=== PATIENT | female | born 1995 | race Caucasian/White ===

== ENCOUNTER 2021-02-05 14:54 | Emergency (ER) | payer OTHER, SELFPAY ==
[2021-02-05 15:24] VITALS: BP 119/56; PULSE 89; RESP 20; TEMP 36.1; O2SAT 98; BMI 32.9
[2021-02-05 19:51] VITALS: BP 120/60; PULSE 88; RESP 20; TEMP 36.6; O2SAT 98
[2021-02-05 20:32] LABS: Appearance Urine CLEAR; Color Urine YELLOW; Glucose Urine UA NEG (NEG); Leukocyte Esterase Urine 3+ (NEG); Nitrite Urine NEG (NEG); Specific Gravity - Urine <= 1.005 (1.005-1.025); UACC Culture Trigger YES; Urine Blood NEG (NEG); Urine Ketones NEG (NEG); Urine Protein NEG (NEG-TRACE)
[2021-02-05 20:34] LABS: UPreg QC Valid YES; Urine Pregnancy POSITIVE (NEGATIVE)
[2021-02-05 20:39] LABS: Bacteria Urine 1+ /LPF; RBC Urine 0 /HPF (0); Squamous Epithelial Cell Urine 3+ /LPF
[2021-02-05 20:45] LABS: Amphetamine Screen Urine Not Detected (Not Detect); Barbiturates, Urine Not Detected (Not Detect); Benzodiazepines Screen Urine Not Detected (Not Detect); Cannabinoid Screen Urine Not Detected (Not Detect); Cocaine Screen Urine Not Detected (Not Detect); Fentanyl, urine Not Detected (Not Detect); Opiate Screen Urine Not Detected (Not Detect); Phencyclidine Screen Urine Not Detected (Not Detect)
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
== END 2021-02-05 21:29 | disposition home or self-care (01) ==
PROVIDERS: Physician Assistant; Emergency Provider Emergency Medicine
DX: O23.42 Unspecified infection of urinary tract in pregnancy, second trimester (principal); N39.0 Urinary tract infection, site not specified; O99.332 Smoking (tobacco) complicating pregnancy, second trimester; Z3A.26 26 weeks gestation of pregnancy
CPT/HCPCS: 80307; 81001; 81025; 87086; 99284

== ENCOUNTER 2021-09-28 16:46 | Emergency (ER) | payer OTHER, SELFPAY ==
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
[2021-09-28 17:56] VITALS: BP 110/75; PULSE 75; RESP 18; TEMP 36.6; O2SAT 97; BMI 36.6
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
[2021-09-28] MEDS: Lidocaine HCl 2 % MPF 5 ML VIAL SUBCUT (21:32)
== END 2021-09-28 22:59 | disposition home or self-care (01) ==
PROVIDERS: Emergency Provider Emergency Medicine; PCP Family Medicine
DX: S01.81XA Laceration without foreign body of other part of head, initial encounter (principal); X99.0XXA Assault by sharp glass, initial encounter; Y93.9 Activity, unspecified; Y92.9 Unspecified place or not applicable; Y99.9 Unspecified external cause status
CPT/HCPCS: 12011; 70450; 99282; 99284

== ENCOUNTER 2024-12-27 09:29 | Outpatient (REF) | payer OTHER, SELFPAY ==
[2024-12-27 12:59] LABS: MANUAL DIFF FLAG NO
[2024-12-27 13:10] LABS: Hematocrit 40.9 % (37.0-47.0); Hemoglobin 13.8 g/dl (12.0-16.0); Imm Gran Abs Auto 0.03 X10*3/uL (0.00-0.03); Imm Gran Pct Auto 0.3 % (0.0-0.4); Lymphocytes Absolute Auto 1.7 X10*3/uL (1.2-4.9); Mean Corpuscular HGB Conc 33.7 g/dl (31.0-35.0); Mean Corpuscular Hemoglobin 31.0 pg (27.0-33.0); Mean Corpuscular Volume 91.9 fL (80.0-98.0); NRBC Abs Auto 0.000 X10*3/uL (0.0-0.012); NRBC Pct Auto 0.0 /100WBC (0.0-0.2); Platelet Count 294 X10*3/uL (160-400); Red Blood Count 4.45 X10*6/uL (4.20-5.50); White Blood Count 9.0 X10*3/uL (4.8-10.8)
[2024-12-27 13:40] LABS: Appearance Urine Cloudy; Glucose Urine UA Negative (Negative); PH 7.0 (5.0-9.0); Specific Gravity - Urine 1.020 (1.005-1.025); UMIC TRIGGER UACC YES
[2024-12-27 13:47] LABS: UACC Culture Trigger YES
[2024-12-27 13:55] LABS: Alanine Aminotransferase 32 U/L (0-31); Albumin Level 4.3 g/dL (3.5-5.0); Alkaline Phosphatase 73 U/L (39-117); Anion Gap 12 (12-20); Aspartate Amino Transferase 29 U/L (5-31); Blood Urea Nitrogen 6 mg/dL (9-16); Calcium 8.5 mg/dL (8.4-10.2); Carbon Dioxide 23 mmol/L (22-29); Chloride 108 mmol/L (96-108); Cholesterol 148 mg/dL (<200); Estimated Glomerular Filt Rate > 60; HDL Cholesterol 61 mg/dL (>40); Magnesium 2.0 mg/dL (1.6-2.6); Potassium 3.8 mmol/L (3.3-5.1); Sodium 139 mmol/L (135-145); Total Protein 6.8 g/dL (6.5-8.0); Triglycerides 94 mg/dL (<150)
[2024-12-27 14:04] LABS: Folate 9.6 ng/mL (> or = 4.0); Vitamin B12 354 pg/mL (200-900)
[2024-12-28 07:39] LABS: HBS Num1 0.86 mIU/mL (0-7.99); HBsAGNum1 0.39 S/CO (0.00-0.99); HIV Num 1 0.07 S/CO (0.00-0.99); Hepatitis B Surface Antigen Negative (Negative); ~HepC Num1 0.10 S/CO (0.00-0.79); ~Hepatitis B Surface Antibody NONREACTIVE (Nonreactive); ~Hepatitis C Antibody Nonreactive (Nonreactive)
[2024-12-30 19:14] LABS: VITAMIN D (1,25 OH) D3 67 pg/mL; Vit D (1,25-Dihydroxy) Total 67 pg/mL (18-72); Vitamin D (1,25 OH) D2 <8 pg/mL
[2025-01-03 02:00] LABS: Calprotectin, Fecal 5 mcg/g
== END 2024-12-27 09:30 | disposition home or self-care (01) ==
LOC: HO.HKASLDS 09:29
PROVIDERS: PCP Nurse Practitioner Family; Visit Provider Student in an Organized Health Care Education/Training Program
DX: Z13.9 Encounter for screening, unspecified (principal); K52.9 Noninfective gastroenteritis and colitis, unspecified; R19.8 Other specified symptoms and signs involving the digestive system and abdomen; L73.2 Hidradenitis suppurativa; F41.9 Anxiety disorder, unspecified; F32.A Depression, unspecified; K62.89 Other specified diseases of anus and rectum; Z78.9 Other specified health status; F17.210 Nicotine dependence, cigarettes, uncomplicated; Z79.899 Other long term (current) drug therapy; Z83.79 Family history of other diseases of the digestive system
CPT/HCPCS: 36415; 80053; 80061; 81001; 82607; 82652; 82656; 82705; 82710; 82746; 83036; 83735; 83993; 84443; 85025; 86706; 86803; 87086; 87088; 87186; 87340; 87389

== ENCOUNTER 2024-12-27 09:29 | Outpatient (AMB) | payer OTHER, SELFPAY ==
--- NOTE | 2024-12-27 09:38 | MHC.PC.OV ---
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, bump in their bottom area Scourer Required: No Accompanied by: Self / Same As Patient Allergies No Known Allergies (No Known Allergies*) Allergy (Verified 12/27/24 09:38) Medication List - Last Reconciled 12/27/24 by Jerome Cordova MD aripiprazole 5 mg PO DAILY sertraline mg PO trazodone 50 mg PO BEDTIME Tobacco use date assessed: 12/27/24 Dental Screening Dental Screen Date: 12/27/24 Did you have a dental visit in the last 12 months?: Yes Did you have a dental problem in the last 6 months where you did not have access to dental care?: No Was dental information given to patient?: Patient has dentist HPI HPI Comments History of Present Illness Details History of Present Illness The patient is a 29-year-old female presenting for evaluation of chronic skin breakouts and gastrointestinal complaints. Hidradenitis Suppurativa: The patient has had recurrent skin breakouts since she was 22 years old, which have been diagnosed as hidradenitis suppurativa (HS). She experiences painful sores under her arms, on her back, on her buttocks, and between her eyes, which sometimes rupture spontaneously. The diagnosis was made at [facility] during a visit for multiple flare-ups, for which she was briefly given antibiotics. She feels the condition is getting worse and has resulted in scarring. Chronic Diarrhea and Anal Sensation: The patient reports chronic diarrhea ongoing for approximately three months to a year, characterized by yellow, watery stools, sometimes with chunks, and an absence of hard stools. She notes that eating salads with onions and tomatoes can trigger urgent diarrhea within 10-15 minutes. Associated symptoms include bubbly stomach noises and stools that can smell like tar. She also describes a sensation of feeling a ball on the front tip of her anus, which causes pressure when sitting. She has a history of acute colitis diagnosed at age 20. Anxiety and Depression: The patient is currently taking sertraline (Zoloft) and trazodone for anxiety and depression. She is followed by a psychiatric medication provider for management. Tobacco Use: The patient reports she has been smoking cigarettes since she was 19 years old. Surgical History: - Denies any history of surgeries. Medications: - Sertraline (Zoloft) for anxiety and depression. - Trazodone for anxiety and depression. - Depo-Provera injection every three months for contraception. Social History: - Substance Use: The patient smokes cigarettes and has been doing so since she was 19 years old. - Nutritional Intake: Reports her diet is not balanced, though she eats salads, vegetables like cucumbers and avocado, and red meat. - Contraception: Uses Depo-Provera injection every three months for control, which was started about a year ago. Family History: - Maternal grandfather had colon cancer and from it. - Mother has multiple sclerosis and was also diagnosed with hidradenitis suppurativa at age 40. - Father has hypercholesterolemia and denies diabetes or hypertension. - Sister has irritable bowel syndrome (IBS). Diagnostic Results: - The patient reports having tests for STDs, HIV, and kidney function at [facility] three months ago, all of which were negative; however, the records are not available for review. Past Medical History - Hidradenitis suppurativa, diagnosed at age [age]. - Acute colitis, diagnosed at age [age]. - Anxiety disorder. - Depression. Health Maintenance - Contraception: The patient receives a Depo-Provera injection every three months for contraception. - Screening Labs: Comprehensive labs will be ordered, including a CBC, CMP, thyroid panel, B12, folate, vitamin D, A1c, lipids, urine studies, and screens for hepatitis B and C. - Tobacco Use: The patient is a current smoker. [facility] Medical History (Updated 12/27/24 @ 11:32 by Jerome Cordova MD) Nicotine dependence Anxiety and depression Hidradenitis suppurativa GI symptoms Chronic diarrhea Family history of irritable bowel syndrome Family History (Updated 12/27/24 @ 09:40 by Aidan Mcdermott MA) Father No problems noted. Mother No problems noted. Social History Housing: Apartment Patient Tobacco Use Status: Current everyday Tobacco user Cigarettes Per Day: 6 service: No Current occupational status: employed Cognitive needs: No Hearing needs: No Vision needs: Yes (rx glasses) Questionnaire PHQ-9 Over the last 2 weeks, how often have you been bothered by any of the following problems? 1. Little interest or pleasure in doing things: several days 2. Feeling down, depressed, or hopeless: not at all 3. Trouble falling or staying asleep, or sleeping too much: not at all 4. Feeling tired or having little energy: several days 5. Poor appetite or overeating: several days 6. Feeling bad about yourself - or that you are a failure or have let yourself or your family down: not at all 7. Trouble concentrating on things, such as reading the newspaper or watching television: not at all 8. Moving or speaking so slowly that other people could have noticed. Or the opposite - being so fidgety or restless that you have been moving around a lot more than usual: not at all 9. Thoughts that you would be better off or of hurting yourself in some way: not at all Total score: 3 Source: Developed by Drs. Kodi Campbell, Stefany Stanley, Raj Lebron and colleagues, with an educational luis a from [employer]. Thrive Questionnaire Date Thrive assessed: 12/27/24 I am a: Patient What is your living situation today?: I have a steady place to live Within the past 12 months, did the food you bought not last and you didn't have the money to get more?: Never true Within the past 12 months, did you worry whether your food would run out before you got money to buy more?: Never true Do you have trouble paying for medicines?: No Do you have trouble getting transportation to medical appointments?: No Do you have trouble paying your heating and electricity bill?: Yes Do you have trouble taking care of your child, family member or friend?: No Do you have trouble with day-to-day activities such as bathing, preparing meals, shopping, managing finances, etc.?: No Are you currently unemployed and looking for a job?: No Are you interested in more education?: Yes Please select the resources that you would like help with: Food and Utilities Currently or been in a relationship where the following occur: No concerns reported THRIVE Score: 1 AUDIT C Alcohol Use Questionnaire (AUDIT-C) 1. How often do you have a drink containing alcohol?: Never 3. How often do you have six or more drinks on one occasion?: Never Total Score: 0 MITRA-7 AMB Questionnaire MITRA-7 Feeling nervous, anxious, or on edge: 0 = Not at all Not being able to stop or control worryin = Not at all Worrying too much about different things: 0 = Not at all Trouble relaxin = Several days Being so restless that it is hard to sit still: 0 = Not at all Becoming easily annoyed or irritable: 0 = Not at all Feeling afraid as if something awful might happen: 0 = Not at all Total MITRA-7 score (0-4 normal; 5-9 mild; 10-14 moderate; 15-21 severe): 1 Source: Developed by Drs. Kodi Campbell, Stefany Stanley, Raj Lebron and colleagues, with an educational luis a from [employer]. Review of Systems Narrative Review of Systems - Skin: Reports painful sores under arms, on her back, buttocks, and between her eyes, with associated scarring. - Gastrointestinal: Reports chronic yellow, watery diarrhea for the past 3-12 months. Denies hard stools. Reports a foreign body sensation in the anus associated with pressure. Reports abdominal gurgling. Reports stool having a tar-like smell. - Gynecological: Reports regular monthly menstruation, which is sometimes just spotting, while on Depo-Provera. - Psychiatric: Reports history of anxiety and depression. - Constitutional: Reports sleeping well. 10-point ROS reviewed and negative except as noted in HPI Physical exam (Primary Care) Vital Signs: Last Vital Signs Temp 97.6 F 12/27/24 09:46 Pulse 77 12/27/24 09:46 Resp 16 12/27/24 09:46 BP 110/57 L 12/27/24 09:46 Pulse Ox 97 12/27/24 09:46 Oxygen Delivery Method Room Air 12/27/24 09:46 BMI result Body Mass Index 24.5 Tobacco/Smoking Status: Tobacco use Status Tobacco use date assessed 12/27/24 12/27/24 09:42 Patient Tobacco Use Status Current everyday Tobacco 12/27/24 09:53 PHQ-9: PHQ-9 Score PHQ-9: Total score 3 12/27/24 09:42 Thrive Assessment: Date of Thrive Assessment Date Thrive assessed 12/27/24 12/27/24 09:42 Currently or been in a relationship where the following occur: No concerns reported Narrative Physical Exam General: Well-appearing, in no acute distress. Vital signs: Within normal limits. HEENT: Normocephalic, atraumatic. PERRLA, EOMI. Conjunctiva clear, sclera anicteric. Oropharynx clear, mucous membranes moist. TMs intact bilaterally. Neck: Supple, no lymphadenopathy, no thyromegaly, no JVD or carotid bruits. Cardiovascular: RRR, normal S1/S2, no murmurs, rubs, or gallops. Peripheral pulses 2+ and symmetric. No edema. Respiratory: Lungs clear to auscultation bilaterally, no wheezes, rales, or rhonchi. Normal effort. Abdomen: Soft, non-tender, non-distended. Normoactive bowel sounds. No hepatosplenomegaly, no masses. MSK: Full range of motion, no joint swelling or deformity. Normal gait. Skin: Warm, dry, intact. No rashes, lesions, or pallor. Indication of hidradenitis suppurativa under arms, back, and buttocks with scarring and abscesses noted. Neuro: Alert and oriented x3. Cranial nerves II-XII intact. Strength 5/5 throughout. Sensation intact. Reflexes 2+ symmetric. Normal coordination and gait. Psych: Appropriate mood and affect. Normal judgment and insight. Taking sertraline, trazodone, and Zoloft for anxiet Rectal exam was performed on inspection there were no signs of excoriation excoriations masses on palpation can not appreciate any masses lumps stated by patient ceramic engineer was in the room director medical writing Liset Coding Level of Care Code New Pt Level 4 (45313) Diagnoses Chronic diarrhea K52.9 GI symptoms R19.8 Family history of irritable bowel syndrome Z83.79 Hidradenitis suppurativa L73.2 Anxiety and depression F41.9; F32.A Nicotine dependence F17.200 Uses contraception Z78.9 Anus irritation K62.89 Assessment & Plan Assessment & Plan (1) Chronic diarrhea: Code(s): K52.9 - Noninfective gastroenteritis and colitis, unspecified Category: Medical (2) GI symptoms: Code(s): R19.8 - Other specified symptoms and signs involving the digestive system and abdomen Category: Medical (3) Family history of irritable bowel syndrome: Code(s): Z83.79 - Family history of other diseases of the digestive system Category: Medical (4) Hidradenitis suppurativa: Code(s): L73.2 - Hidradenitis suppurativa Category: Medical (5) Anxiety and depression: Code(s): F41.9 - Anxiety disorder, unspecified; F32.A - Depression, unspecified Category: Medical (6) Nicotine dependence: Code(s): F17.200 - Nicotine dependence, unspecified, uncomplicated Category: Medical (7) Uses contraception: Code(s): Z78.9 - Other specified health status (8) Anus irritation: Code(s): K62.89 - Other specified diseases of anus and rectum Plan Consent The patient provided verbal consent for a physical examination, including a rectal exam, after the procedure was explained to her. Patient was informed and verbally consented to the use of an ambient scribe for clinic note documentation during this visit. Plan 1. Hidradenitis Suppurativa - Prescribe doxycycline 100 mg twice daily for two months to manage the current mild flare-up and prevent progression. - Schedule a follow-up in two weeks to review lab results and another in three weeks to assess treatment response. 2. Chronic Diarrhea And Anal Discomfort - Order comprehensive baseline labs, including a complete blood count, comprehensive metabolic panel, thyroid panel, B12, folate, vitamin D, HbA1c, and a lipid panel. Stool studies - Order urine studies and fecal studies for further evaluation. - Place a referral to a mixer operator helper hot metal for further evaluation of chronic GI symptoms, given the patient's personal and family history. - Reassure patient that further investigation will be done, despite a non-revealing physical exam. 3. Health Maintenance And Coordination Of Care - Request medical records from the patient's psychiatric medication provider to be added to her chart. - Re-order Hepatitis B, C, and other STD panels as prior records are unavailable. Discussion Notes I discussed my assessment with the patient, confirming her skin condition appears consistent with hidradenitis suppurativa. I explained the plan to prescribe a course of doxycycline for two months to control the inflammation and prevent long-term complications such as scarring. Regarding her gastrointestinal symptoms, I explained that while my rectal exam did not reveal a palpable mass or hemorrhoid, her symptoms of chronic diarrhea and the sensation of a mass warrant further investigation. I informed her that I will be placing a referral to a mixer operator helper hot metal for a specialist evaluation, particularly given her personal history of colitis and family history of colon cancer. We reviewed the plan to obtain comprehensive baseline laboratory studies, including blood, urine, and stool tests, to get a better overall picture of her health. I advised her to return in two weeks to review the results. I also requested that she arrange for her psychiatric medical records to be sent to our office for continuity of care. Patient Instructions - You will be prescribed doxycycline 100 mg to be taken two times a day for two months for your skin condition. - A referral has been made for you to see a mixer operator helper hot metal (stomach doctor) for your ongoing diarrhea and other stomach issues. - Please go to the lab to have bloodwork and urine tests done. - You will also be given instructions and containers for collecting stool samples. - Please return to the clinic for a follow-up appointment in two weeks to review your lab results. - Please inform the front end mechanic staff that we need to request your medical records from your mental health provider. Medical Decision Making The patient is a 29-year-old female establishing care with primary complaints of a chronic skin condition and gastrointestinal issues. Her skin presentation is consistent with hidradenitis suppurativa, which she reports is worsening. Given the mild nature of the current flare, a course of oral doxycycline is initiated to reduce inflammation and prevent disease progression, including scarring and abscess formation. Her gastrointestinal symptoms, including chronic diarrhea, an anal mass sensation, and a history of acute colitis, are concerning. The differential diagnosis includes inflammatory bowel disease, particularly given her family history of colon cancer and her sister's IBS, as well as potential pancreatic insufficiency. Although the digital rectal exam was unremarkable, her subjective symptoms are significant and warrant a thorough workup. Therefore, a referral to gastroenterology for further evaluation, including probable endoscopy/colonoscopy, is clinically indicated. Comprehensive baseline labs and fecal studies are ordered to provide initial diagnostic data. Care will be coordinated with her mental health provider, and records have been requested to ensure a complete medical history is available. Total time spent caring for the patient today was 30 minutes. This includes time spent before the visit reviewing the chart, time spent documenting, and time spent reviewing laboratory results, diagnostic imaging, medications, performing a medically necessary evaluation, counseling on diagnoses, care coordination. Orders: Orders Complete Blood Count Auto Diff Today Z13.9 - Encounter for screening, unspecified Hepatitis B Surface Antibody Today Z13.9 - Encounter for screening, unspecified Hepatitis B Surface Antigen Today Z13.9 - Encounter for screening, unspecified Hepatitis C Antibody Today Z13.9 - Encounter for screening, unspecified Lipid Panel Today Z13.9 - Encounter for screening, unspecified Magnesium Today Z13.9 - Encounter for screening, unspecified TSH reflex Free T4 Today Z13.9 - Encounter for screening, unspecified UA CC w/rflx Micro + Cult Today Z13.9 - Encounter for screening, unspecified Fecal Fat Qualitative Today K52.9 - Noninfective gastroenteritis and colitis, unspecified, R19.8 - Other specified symptoms and signs involving the digestive system and abdomen Pancreatic Elastase-1 Today K52.9 - Noninfective gastroenteritis and colitis, unspecified, R19.8 - Other specified symptoms and signs involving the digestive system and abdomen Comprehensive Met. Panel Today Z13.9 - Encounter for screening, unspecified Hemoglobin A1c Today Z13.9 - Encounter for screening, unspecified HIV Ab/Ag Today Z13.9 - Encounter for screening, unspecified Vitamin B12 and Folate Today Z13.9 - Encounter for screening, unspecified Vitamin D 1,25 dihydroxy Today Z13.9 - Encounter for screening, unspecified Calprotectin, Fecal Today K52.9 - Noninfective gastroenteritis and colitis, unspecified, R19.8 - Other specified symptoms and signs involving the digestive system and abdomen Lipids Total, Feces Today K52.9 - Noninfective gastroenteritis and colitis, unspecified, R19.8 - Other specified symptoms and signs involving the digestive system and abdomen Referrals Gastroenterology Referral K52.9 - Noninfective gastroenteritis and colitis, unspecified, R19.8 - Other specified symptoms and signs involving the digestive system and abdomen, Z83.79 - Family history of other diseases of the digestive system, Z87.19 - Personal history of other diseases of the digestive system Medications: New doxycycline hyclate 100 mg PO BID 120 tabs 0RF Discontinued nitrofurantoin monohyd/m-cryst 100 mg (Macrobid) must administer with a meal/food Discontinued Reason: Patient no longer taking 100 mg PO Q12H 7 days 14 caps 0RF cephalexin Discontinued Reason: Patient no longer taking 500 mg PO QID 5 days 20 caps 0RF
[2024-12-27 09:46] VITALS: BP 110/57; PULSE 77; RESP 16; TEMP 36.4; O2SAT 97; BMI 24.5
--- OUTSIDE RECORDS SUMMARY | 2024-12-27 10:39 | XMS_ITS | Clinical Summary ---
Author Organization [facility] ity Address [address] [place] [address] Care Team Providers Care Him Specialist Name Role Phone Unavailable Primary Care Provider Unavailabl e Social History Tobacco Use Types Packs/Day Years Used Date Smoking Tobacco: Never Assessed Comments Unknown Sex and Gender Information Value Date Recorded Sex Assigned at Not on file Legal Sex Female 4:31 AM EST Gender Identity Not on file Sexual Orientation Not on file Plan of Treatment Health Maintenance Due Date Last Done Comments DTaP,Tdap,and Td Vaccines (1 - Tdap) 06/29/2015 Hepatitis B Vaccines (1 of 3 - 19+ 3-dose series) 06/29/2015 Cervical Cancer Screening: P ap Smear 2017 HIV Screening 01/24/2022 Hepatitis C Screening 01/24/2022 Social Influencers of Health Screening 01/24/2022 HPV Vaccines (1 - 3-dose SCD M series) 06/29/2023 Depression Screening 02/22/2024 COVID-19 Vaccine (2 - 2024-2 6 season) 2024 02/27/2020 Influenza Vaccine (#1) 2024 01/29/2020 RSV Immunization Adult Patie nts (1 - 1-dose 75+ series) 06/29/2071 HIB Vaccines Aged Out No longer eligi ble based on patient's age to complete this topic Hepatitis A Vaccines Aged Out No long er eligible based on patient's age to complete this topic IPV Vaccines Aged Out No longer eligi ble based on patient's age to complete this topic MMR Vaccines Aged Out No longer eligi ble based on patient's age to complete this topic Meningococcal ACWY Vaccine Aged Out N o longer eligible based on patient's age to complete this topic Meningococcal B Vaccine Aged Out No l onger eligible based on patient's age to complete this topic Pneumococcal Vaccine: Pediat rics (0 to 5 Years) and At-Risk Patients (6 to 49 Years) Aged Out No longer eligi ble based on patient's age to complete this topic RSV Immunization Patients Un jazmine 20 months Aged Out No longer eligible b ased on patient's age to complete this topic Varicella Vaccines Aged Out No longer eligible based on patient's age to complete this topic
== END 2024-12-27 10:34 | disposition home or self-care (01) ==
LOC: HO.HMCFMS 09:30
PROVIDERS: PCP Nurse Practitioner Family; Visit Provider Student in an Organized Health Care Education/Training Program
DX: K52.9 Noninfective gastroenteritis and colitis, unspecified (principal); R19.8 Other specified symptoms and signs involving the digestive system and abdomen; Z83.79 Family history of other diseases of the digestive system; L73.2 Hidradenitis suppurativa; F41.9 Anxiety disorder, unspecified; F32.A Depression, unspecified; F17.200 Nicotine dependence, unspecified, uncomplicated; Z78.9 Other specified health status; K62.89 Other specified diseases of anus and rectum

== ENCOUNTER 2025-01-29 10:30 | Outpatient (AMB) | payer OTHER, SELFPAY ==
--- NOTE | 2025-01-29 10:37 | MHC.PC.OV ---
Vital Signs 01/29/25 10:47 Height 5 ft 2.99 in Weight 206 lb BMI 36.5 BP 120/64 Blood Pressure Location Lt brachial Position Sitting Pulse 77 Pulse Source Pulse Oximeter Temp 98.3 F Temp Source Oral Pulse Oximetry (%) 98 Oxygen Delivery Method Room Air Intake Visit Reasons: Review Labs Accompanied by: Self / Same As Patient Allergies No Known Allergies (No Known Allergies*) Allergy (Verified 01/29/25 10:37) Medication List - Last Reconciled 01/29/25 by Jerome Cordova MD aripiprazole 5 mg PO DAILY sertraline mg PO soap (Neutrogena Acne Cleansing Soap Bar) 1 appl topical BID spironolactone 100 mg PO BID tetracycline 500 mg PO Q12H trazodone 50 mg PO BEDTIME Tobacco use date assessed: 01/29/25 Dental Screening Dental Screen Date: 01/29/25 Did you have a dental visit in the last 12 months?: No HPI HPI Comments History of Present Illness Details History of Present Illness The patient is a 29 year old female presenting with follow-up for hidradenitis suppurativa and medication management. Hidradenitis suppurativa: The patient presents for follow-up on her hidradenitis suppurativa, which she notes has gotten worse since her last visit. The lesions are located under her armpits. She reports recently popping one of the lesions, which resulted in significant bleeding. She was previously prescribed doxycycline, but she could not obtain it due to the cost of $30 as her insurance did not cover it. She reports that a prior medication, spironolactone 100 mg, prescribed by [facility] was effective. Hematuria: Recent lab work revealed trace blood in her urine on urinalysis. The patient denies any symptoms of a urinary tract infection at the time of the test, but she confirms that she was menstruating. Medications: - Spironolactone 100 mg twice daily for hidradenitis suppurativa, previously prescribed by another provider and found to be effective. - Cetaphil soap for hidradenitis suppurativa. Social History: - The patient has a pvwtm-[id number]-sce child. - The patient reports financial difficulties affecting her ability to afford prescribed medications. Diagnostic Results: - CBC: White blood cell count, red blood cell count, hemoglobin, and hematocrit were normal. - Comprehensive Metabolic Panel (CMP): Sodium, potassium, liver function, and glucose were normal. - Lipid Panel: Triglycerides, total cholesterol, and LDL cholesterol were normal. - Other Labs: Vitamin B12 and folate levels were normal. - HIV Screen: Negative. - Hepatitis Panel: Hepatitis B and Hepatitis C screens were negative. - Urinalysis: Positive for trace blood. - Stool Studies: Normal. Past Medical History - Hidradenitis suppurativa Health Maintenance - HIV screening: Negative. - Hepatitis C screening: Negative. - Hepatitis B screening: Negative. [facility] Medical History (Updated 01/29/25 @ 19:14 by Jerome Cordova MD) Hematuria Nicotine dependence Anxiety and depression Hidradenitis suppurativa GI symptoms Chronic diarrhea Family history of irritable bowel syndrome Family History (Reviewed 01/29/25 @ 10:38 by Liset Silevira [facility]) Father No problems noted. Mother No problems noted. Social History (Reviewed 01/29/25 @ 10:38 by Liset Silveira [facility]) Housing: Apartment Patient Tobacco Use Status: Current everyday Tobacco user Cigarettes Per Day: 6 e-Cigarette/Vaping Use: Never Used service: No Current occupational status: employed Cognitive needs: No Hearing needs: No Vision needs: Yes (rx glasses) Questionnaire PHQ-9 Over the last 2 weeks, how often have you been bothered by any of the following problems? 1. Little interest or pleasure in doing things: several days 2. Feeling down, depressed, or hopeless: not at all 3. Trouble falling or staying asleep, or sleeping too much: not at all 4. Feeling tired or having little energy: several days 5. Poor appetite or overeating: several days 6. Feeling bad about yourself - or that you are a failure or have let yourself or your family down: not at all 7. Trouble concentrating on things, such as reading the newspaper or watching television: not at all 8. Moving or speaking so slowly that other people could have noticed. Or the opposite - being so fidgety or restless that you have been moving around a lot more than usual: not at all 9. Thoughts that you would be better off or of hurting yourself in some way: not at all Total score: 3 Depression Screening Interpretation: Negative Depression Screening Done: Yes Source: Developed by Drs. Kodi Campblel, Stefany Stanley, Raj Lebron and colleagues, with an educational luis a from [employer]. Thrive Questionnaire Date Thrive assessed: 01/29/25 I am a: Patient What is your living situation today?: I have a steady place to live Within the past 12 months, did the food you bought not last and you didn't have the money to get more?: Never true Within the past 12 months, did you worry whether your food would run out before you got money to buy more?: Never true Do you have trouble paying for medicines?: No Do you have trouble getting transportation to medical appointments?: No Do you have trouble paying your heating and electricity bill?: Yes Do you have trouble taking care of your child, family member or friend?: No Do you have trouble with day-to-day activities such as bathing, preparing meals, shopping, managing finances, etc.?: No Are you currently unemployed and looking for a job?: No Are you interested in more education?: Yes Currently or been in a relationship where the following occur: No concerns reported THRIVE Score: 1 AUDIT C Alcohol Use Questionnaire (AUDIT-C) 1. How often do you have a drink containing alcohol?: Never 3. How often do you have six or more drinks on one occasion?: Never Total Score: 0 MITRA-7 AMB Questionnaire MITRA-7 Date MITRA - 7 assessed: 01/29/25 Feeling nervous, anxious, or on edge: 0 = Not at all Not being able to stop or control worryin = Not at all Worrying too much about different things: 0 = Not at all Trouble relaxin = Several days Being so restless that it is hard to sit still: 0 = Not at all Becoming easily annoyed or irritable: 0 = Not at all Feeling afraid as if something awful might happen: 0 = Not at all Total MITRA-7 score (0-4 normal; 5-9 mild; 10-14 moderate; 15-21 severe): 1 Source: Developed by Drs. Kodi Campbell, Raj Herman and colleagues, with an educational luis a from [employer]. Review of Systems Narrative Review of Systems - Integumentary: Reports worsening lesions under her armpits consistent with hidradenitis suppurativa, with one lesion having significant bleeding after she popped it. - Gynecologic/Genitourinary: Denies symptoms of a urinary tract infection. She was menstruating at the time of her recent urinalysis. 10-point ROS reviewed and negative except as noted in HPI Physical exam (Primary Care) Vital Signs: Last Vital Signs Temp 98.3 F 01/29/25 10:47 Pulse 77 01/29/25 10:47 BP 120/64 01/29/25 10:47 Pulse Ox 98 01/29/25 10:47 Oxygen Delivery Method Room Air 01/29/25 10:47 BMI result Body Mass Index 36.5 Tobacco/Smoking Status: Tobacco use Status Tobacco use date assessed 01/29/25 01/29/25 10:38 Patient Tobacco Use Status Current everyday Tobacco 01/29/25 10:38 e-Cigarette/Vaping Use Never Used 01/29/25 10:38 PHQ-9: PHQ-9 Score PHQ-9: Total score 3 01/29/25 12:02 Depression Screening Interpretation: Negative Thrive Assessment: Date of Thrive Assessment Date Thrive assessed 01/29/25 01/29/25 10:38 Currently or been in a relationship where the following occur: No concerns reported Narrative Physical Exam General: Well-appearing, in no acute distress. Vital signs: Within normal limits. HEENT: Normocephalic, atraumatic. PERRLA, EOMI. Conjunctiva clear, sclera anicteric. Oropharynx clear, mucous membranes moist. TMs intact bilaterally. Neck: Supple, no lymphadenopathy, no thyromegaly, no JVD or carotid bruits. Cardiovascular: RRR, normal S1/S2, no murmurs, rubs, or gallops. Peripheral pulses 2+ and symmetric. No edema. Respiratory: Lungs clear to auscultation bilaterally, no wheezes, rales, or rhonchi. Normal effort. Abdomen: Soft, non-tender, non-distended. Normoactive bowel sounds. No hepatosplenomegaly, no masses. MSK: Full range of motion, no joint swelling or deformity. Normal gait. Skin: Warm, dry, intact. scattered lesion under arm pits healing Neuro: Alert and oriented x3. Cranial nerves II-XII intact. Strength 5/5 throughout. Sensation intact. Reflexes 2+ symmetric. Normal coordination and gait. Psych: Appropriate mood and affect. Normal judgment and insight. Office Procedures Flu Questionnaire Does the patient have a severe egg allergy?: No Does the patient have severe life threatening allergies?: No Does the patient have a fever or illness today?: No Has the patient ever had Guillain-Wickliffe Syndrome?: No Has the patient ever had any past reaction to a flu shot?: No Immunizations Fluarix [id number] (PF) 45 mcg (15 mcg x 3)/0.5 mL IM syringe Performing Provider: Jerome Cordova MD Performing Location[place] [facility] Documented (not given) by: Liset Silveira CMA on 01/29/25 12:03 Reason Not Given: Not Given Coding Level of Care Code Est Pt Level 3 (24280) Diagnoses Hidradenitis suppurativa L73.2 Nicotine dependence F17.200 Anxiety and depression F41.9; F32.A Hematuria R31.9 Assessment & Plan Assessment & Plan (1) Hidradenitis suppurativa: Code(s): L73.2 - Hidradenitis suppurativa Category: Medical (2) Nicotine dependence: Code(s): F17.200 - Nicotine dependence, unspecified, uncomplicated Category: Medical (3) Anxiety and depression: Code(s): F41.9 - Anxiety disorder, unspecified; F32.A - Depression, unspecified Category: Medical (4) Hematuria: Code(s): R31.9 - Hematuria, unspecified Category: Medical Plan Consent Patient was informed and verbally consented to the use of an ambient scribe for clinic note documentation during this visit. Plan 1. Hidradenitis Suppurativa - The patient was unable to afford the previously prescribed doxycycline. - She reports that spironolactone 100 mg twice daily, previously prescribed by [facility], was effective for her condition. - A prescription for spironolactone 100 mg twice daily for a 3-month supply has been sent. - A prescription for tetracycline 500 mg twice daily for 8 weeks will be sent to see if it is covered by her insurance. A prior authorization will be submitted. - The patient is instructed to communicate via the patient portal if she cannot obtain the tetracycline, and an alternative will be prescribed. - A prescription for Cetaphil soap was also sent. 2. Hematuria - Recent urinalysis showed trace blood, which is likely due to menstrual contamination as the patient was on her period at the time of collection. - No further workup is indicated at this time. Discussion Notes I reviewed the patient's recent lab results with her, all of which were normal except for trace blood in the urine. We discussed that the hematuria was likely due to menstruation at the time of the sample collection. Her primary concern is worsening hidradenitis suppurativa. Since she was unable to afford doxycycline, we discussed restarting spironolactone, which has been effective for her in the past. We also discussed attempting a different antibiotic, tetracycline, which may be covered by her insurance. I have sent prescriptions for spironolactone 100 mg twice daily, tetracycline 500 mg twice daily, and Cetaphil soap. I informed her that a prior authorization is needed for the tetracycline, and if it is not approved, I will prescribe an alternative. She agreed to this plan and will communicate via the portal about her ability to obtain the medications. Patient Instructions - Your lab results were reviewed and are normal, except for a small amount of blood in your urine, which is likely because you were on your period. No further action is needed for this. - A prescription for spironolactone 100 mg has been sent. Take one pill twice a day. - A prescription for Cetaphil soap has been sent to the pharmacy. - A prescription for the antibiotic tetracycline 500 mg has been sent to your pharmacy. You should take it two times per day for 8 weeks. - Please let me know through the patient portal if your insurance does not cover the tetracycline. We will need to request permission from your insurance (a prior authorization), and if they deny it, I will send a different antibiotic. Medical Decision Making The patient is a 29-year-old female presenting for follow-up of hidradenitis suppurativa. Her symptoms have worsened, and she was unable to obtain the previously prescribed doxycycline due to cost. She has a history of responding well to spironolactone 100 mg twice daily, which was prescribed by a previous provider, so I will restart this medication. Given the flare, an antibiotic is also warranted. I will try prescribing tetracycline 500 mg twice daily, as this may be a more affordable option for the patient. A prior authorization will be submitted, and if it is denied, I will switch to an alternative. The patient's recent labs were reassuringly normal, with the trace hematuria explained by menstruation. The plan is to manage her HS with spironolactone, tetracycline, and topical Cetaphil soap. Total Time Statement 20 min Total time spent caring for the patient today includes pre-visit chart review, documentation, review of laboratory and diagnostic imaging results, medication reconciliation, medically necessary evaluation, counseling on diagnoses, care coordination, ordering appropriate tests and medications, review of tests performed by other providers, reporting test results to the patient, and communication with other healthcare providers. Orders: Orders Influenza [id number] Immunization Today Z23 - Encounter for immunization Medications: New soap (Cetaphil Bar) 1 appl topical BID-QID PRN 1 ea 0RF disinfection tetracycline 500 mg PO Q12H 60 tabs 0RF L73.2 - Hidradenitis suppurativa spironolactone 100 mg PO BID 180 tabs 0RF Discontinued doxycycline hyclate Discontinued Reason: Doctor's Order 100 mg PO BID 120 tabs 0RF
[2025-01-29 10:47] VITALS: BP 120/64; PULSE 77; TEMP 36.8; O2SAT 98; BMI 36.5
== END 2025-01-29 11:08 | disposition home or self-care (01) ==
LOC: HO.HMCFMS 10:31
PROVIDERS: PCP Student in an Organized Health Care Education/Training Program; Visit Provider Student in an Organized Health Care Education/Training Program
DX: L73.2 Hidradenitis suppurativa (principal); F17.200 Nicotine dependence, unspecified, uncomplicated; F41.9 Anxiety disorder, unspecified; F32.A Depression, unspecified; R31.9 Hematuria, unspecified; Z23 Encounter for immunization

== ENCOUNTER → 2025-01-29 10:30 | Outpatient (BNVA) | payer OTHER, SELFPAY | PROVIDERS: PCP Student in an Organized Health Care Education/Training Program; Visit Provider Student in an Organized Health Care Education/Training Program | DX: L73.2 Hidradenitis suppurativa (principal); F41.9 Anxiety disorder, unspecified; F32.A Depression, unspecified; R31.9 Hematuria, unspecified; F17.200 Nicotine dependence, unspecified, uncomplicated; Z13.31 Encounter for screening for depression; Z13.39 Encounter for screening examination for other mental health and behavioral disorders | CPT/HCPCS: 90471; 96127; 99212 ==